=== PATIENT | male | born 1980 | race Caucasian/White ===

== ENCOUNTER 2017-05-15 11:24 | Emergency (ER) | payer SELFPAY ==
--- NOTE | 2017-05-15 13:25 | CT ---
CT BRAIN WITHOUT CONTRAST: Date: 05/15/17 HISTORY: 36-year-old male with right leg numbness. FINDINGS: No evidence of acute infarct, hemorrhage, midline shift, or abnormal extra-axial fluid collections a re seen. The bony calvarium is intact. The visualized paranasal sinuses and mastoid air cells are we ll aerated. IMPRESSION: No CT evidence of acute intracranial process. POS: OFF
== END 2017-05-15 13:40 | disposition home or self-care (01) ==
LOC: ERS 11:24
DX: R20.2 Paresthesia of skin (principal); F41.9 Anxiety disorder, unspecified; F17.210 Nicotine dependence, cigarettes, uncomplicated
CPT/HCPCS: 70450

== ENCOUNTER 2017-09-06 07:57 | Emergency (ER) | payer SELFPAY ==
[2017-09-06] MEDS ORDERED: Bicillin LA 2.4 MILL.UNITS/4 ML SYRINGE ONE (08:37)
== END 2017-09-06 08:58 | disposition home or self-care (01) ==
LOC: ERS 07:57
DX: N50.9 Disorder of male genital organs, unspecified (principal); F17.210 Nicotine dependence, cigarettes, uncomplicated; F41.9 Anxiety disorder, unspecified
CPT/HCPCS: 96372; 99406; J0561